=== PATIENT | female | born 1955 | race Caucasian/White ===

== ENCOUNTER 2018-09-24 08:57 | Day surgery (SDC) | payer MEDICARE, OTHER ==
[2018-09-24 09:12] VITALS: RESP 20; TEMP 97.4
[2018-09-24 09:54] LABS: Mean Platelet Volume 7.1; Platelet Count 574 k/uL (150-450)
[2018-09-24 10:06] LABS: Prothrombin Time 10.6 sec (9.0-12.0)
--- NOTE | 2018-09-24 11:20 | P.PCN ---
Date of Procedure: 09/24/18 Preoperative Diagnosis: liver mass Postoperative Diagnosis: same Procedure(s) Performed: u/s guide core biopsy right lobe liver Anesthesia: local Condition: stable Disposition: observation Operative Findings: 1 pass 18 ga core biopsy coaxially through 17 ga guide, specimen to path in formalin
[2018-09-24 11:27] VITALS: PULSE 80
[2018-09-24 11:59] LABS: Glucose,Whole Blood 208 mg/dL (75-99)
[2018-09-24] MEDS ORDERED: INSULIN ASPART (NovoLOG) 100 UNIT/ML VIAL SQ ONE (12:15)
--- NOTE | 2018-09-24 14:21 | US ---
EXAMINATION TYPE: US biopsy liver DATE OF EXAM: 09/24/2018 HISTORY: Liver mass. FINDINGS: Maximal barrier technique was utilized. The skin overlying a suitable path to the patient' s mass within the inferior right lobe of the liver was localized with ultrasound and the overlying sk in prepped and draped. Ultrasound was utilized with sterile technique. Lidocaine was used for local anesthesia. A skin eneida was made with a scalpel. An 18-gauge needle was advanced under direct ultr asound guidance and core specimen obtained of the mass. Specimen submitted in formalin to Pathology. Following the procedure, hemostasis achieved and the patient is discharged in stable condition with out complication. IMPRESSION:STATUS POST ULTRASOUND GUIDED CORE BIOPSY OF right lobe liver MASS, PATHOLOGY IS PENDING. THIS PROCEDURE IS PERFORMED BY THE UNDERSIGNED.
[2018-09-24 14:52] VITALS: BP 149/70
== END 2018-09-24 14:55 | disposition home or self-care (01) ==
LOC: RADPROMAIN 08:57
PROVIDERS: ATTEND Surgery
DX: K75.81 Nonalcoholic steatohepatitis (NASH) (principal)
CPT/HCPCS: 36415; 47000; 76942; 85049; 85610; 88307; 88313